=== PATIENT | female | born 1950 | race Caucasian/White ===

== ENCOUNTER 2016-12-21 21:59 | Inpatient (IN) | payer MEDICARE, BC ==
[~2016-12-21] VITALS: Ht 162.6 cm; Wt 122.9 kg
--- NOTE | ~2016-12-21 | HP ---
ADMIT: 12/21/2016 RM/LOC: 312 [facility] MR#: [id number] [address] [address] NATACHA GARCIA [address] [place] [address] History and Physical SEX: F AGE: 66 : 1950 DATE OF SERVICE: 12/22/2016 CHIEF COMPLAINT: Urosepsis. HISTORY OF PRESENT ILLNESS: Natacha is a pleasant 66-year-old white female, who presented to the [facility] Emergency Department in the evening hours of 12/21/2016 with about a one month history of progressively worsening malodorous urine, urinary urgency, and urinary frequency. She denied any dysuria. She had some low bilateral back pain with this. She thought that perhaps she had another urinary tract infection, but was trying to self medicate this with cranberry juice. In reviewing her clinic record dating back to January of 2016, she has at least 4 culture proven urinary tract infections. She is not currently on any antibiotic prophylaxis for further infections. PAST MEDICAL HISTORY: Remarkable for the following; 1. Carcinoma in situ of the endometrium. 2. History of panic attacks and generalized anxiety disorder. 3. Hypertension. 4. Hyperlipidemia. 5. Vitamin D deficiency. 6. Obesity. PAST SURGICAL HISTORY: 1. She had a papilloma excised from areola of the left breast. 2. Laparoscopic-assisted vaginal hysterectomy with bilateral salpingo oophorectomy in January of 2013. MEDICATIONS: Her outpatient medications include; 1. Zoloft 50 mg daily. 2. Vitamin D 50,000 units weekly. 3. Hyzaar 100/25, one tab daily. 4. Atenolol 25 mg daily. 5. Aspirin 81 mg daily. 6. Nystatin/triamcinolone twice daily as needed for skin yeast infections. 7. Nexium 20 mg daily. 8. Artificial Tears. ALLERGIES: 1. SHE IS ALLERGIC TO WILLIAM INHIBITORS WHICH CAUSE COUGH. 2. FLUOROQUINOLONES CAUSE JOINT PAINS. 3. SULFA MEDICATIONS. SOCIAL HISTORY: She is . Her , Juma accompanies her in the ICU room today. She is a nonsmoker. She denies any significant alcohol use. She does not use any drugs. She is currently not working. She lives at home with her spouse. FAMILY HISTORY: Noncontributory. ADMIT: 12/21/2016 RM/LOC: 312 [facility] MR#: [id number] [address] [address] NATACHA GARCIA [address] [place] [address] History and Physical SEX: F AGE: 66 : 1950 REVIEW OF SYSTEMS: She denies any diarrhea. She has had some vomiting in the last couple of days. She has also had some low-grade fevers and dizziness. She denies any rash. Again, she has had a malodorous urine, urinary frequency, and urinary urgency, but no dysuria. She has had some low back pain without any numbness or weakness down her lower extremities. Again, it should be noted that she has had 4 culture proven urinary tract infections in our clinic. All managed by her serology technician in the last year. She is not on any prophylactic antibiotics. PHYSICAL EXAMINATION: VITAL SIGNS: Her blood pressure is 116/95, this is on a Levophed drip; pulse is 68; respirations are 18; T-max in the overnight period since admission is 101.4; O2 saturation presently is 91% on room air. GENERAL: She is awake, alert, pleasant, and appropriate. Lying in supine position in hospital bed. She is obese. HEENT: Normocephalic and atraumatic. NECK: Supple. No lymphadenopathy. No thyromegaly. No JVD. HEART: Regular rate and rhythm. No murmurs, gallops, or rubs. LUNGS: Clear to auscultation bilaterally. ABDOMEN: Soft, nontender, and nondistended. No rebound, guarding, or masses. EXTREMITIES: No cyanosis, clubbing, or edema. LABORATORY AND X-RAY DATA: Procalcitonin on admission through the ER was 0.42, this is jumped up to 42 in the overnight period. Her lactic acid initially was 3.2, with IV hydration, this is 1.3 now. UA with micro on admission 1+ protein, 2+ blood, 3+ leukocyte esterase, 36 whites per high- power field, few bacteria, this was a straight cath specimen. Initial ABG showed a pH of 7.42, pCO2 of 32, PO2 of 54, and bicarb of 23. CMP was remarkable for a mildly depressed potassium of 3.4, and magnesium 1.7. CRP was 3.17. Cardiac enzymes were negative. ProBNP was 146. CBC initially showed a white count of 7.9 with 24% bands, hemoglobin and platelets were unremarkable. Repeat CBC this morning shows a white count of 17,000, again with a 9% bandemia; hemoglobin of 12.5; and platelet of 219. Repeat BMP this morning, potassium is improved to 3.8. Blood culture finals are pending; otherwise, no growth to date on those. CT of the abdomen and pelvis shows a congenitally malrotated right kidney and a 1 cm right renal hypodensity at the inferior pole which may represent a small cyst or even possible focal area of pyelonephritis. Urine culture is read out as "growth present, further incubation required for further evaluation." ASSESSMENT: 1. Sepsis due to urinary tract infection. 2. Urinary tract infection. 3. Recurrent urinary tract infections. 4. Hypertension. 5. Hyperlipidemia. ADMIT: 12/21/2016 RM/LOC: 312 [facility] MR#: [id number] [address] [place] [id number] JOSE NATACHA S [address] [place] [address] History and Physical SEX: F AGE: 66 : 1950 6. Vitamin D deficiency. 7. Obesity. 8. History of endometrioid adenocarcinoma of the uterus. 9. History of retinal detachment. 10.Generalized anxiety disorder and panic attacks. PLAN: Natacha has been placed on vancomycin and Zosyn in the overnight period. I agree with these antibiotics. Critical Care Medicine has been consulted. She is currently on Levophed drip. I anticipate that we will be able to wean that down here in the next 24 to 48 hours. We will continue her IV hydration tailor her antibiotics based on her urine cultures once those are available. Long-term, she is going to need to have urinary tract infection suppression. Dawson Silverio MD/ nidia JOB #: [id number] CC: Dawson Silverio, Attending Physician Dawson Silverio, Family Physician
--- NOTE | 2016-12-22 03:02 | ER ---
ADMIT: 12/21/2016 RM/LOC: ER [facility] MR#: [id number] [address] [address] NATACHA GARCIA [address] [place] [address] Emergency Room Report SEX: F AGE: 66 : 1950 DATE: 12/21/2016 HISTORY OF PRESENT ILLNESS: The patient is a 66-year-old female, complaining of urinary frequency with minimal dysuria for the past several weeks, developed fever and right flank pain tonight with nausea and vomiting x3. No prior history of pyelonephritis. Does have history of renal colic, status post lithotripsy in the remote past. PAST MEDICAL HISTORY: ILLNESSES: Hypertension, GERD, depression, anxiety, uterine cancer, kidney stones. OPERATIONS: Breast biopsies, extracorporeal shock wave lithotripsy, hysterectomy with bilateral salpingo-oophorectomy. ALLERGIES: NONE. MEDICATIONS: Please see nurse's MAR. SOCIAL HISTORY: , nonsmoker, nondrinker. No illicit drugs. FAMILY HISTORY: Negative per chart review. REVIEW OF SYSTEMS: A 12-point review of systems negative for all other systems, illnesses, or operations except as outlined above. PHYSICAL EXAMINATION: VITAL SIGNS: Temp 102.1, pulse 102, respirations 22, BP 177/57, SaO2 of 92% on room air, weight 118.2 kilos. GENERAL: Anxious, non-diaphoretic, toxic appearing without jaundice or icterus. HEENT: Normocephalic. No evidence of epistaxis, rhinorrhea or otorrhea. NECK: Supple without lymphadenopathy or thyromegaly. CHEST: Clear. Breath sounds equal. HEART: Tachycardic, regular without murmur, gallop, or edema. ABDOMEN: Obese, nontender, nondistended without mass or megaly. Bowel sounds hypoactive. BACK: No CVA tenderness. EXTREMITIES: No evidence of Homans sign, synovitis, or dermatitis. NEURO: EOMI. PERRLA. MEDICAL DECISION MAKING: The patient's screen is positive for sepsis. Normal CBC. CRP elevated at 3.17. Magnesium 1.7, potassium 3.4, procalcitonin 0.42. ABGs on room air pH 7.4, pCO2 of 39, PO2 of 62, lipase 155, lactic 3.2. UA; 3+ leukocyte esterase, 56 WBCs, 52 RBCs, culture pending. EKG shows sinus rhythm with left atrial enlargement, anterior lateral ST depression. Chest x- ray negative. CT abdomen and pelvis consistent with right pyelonephritis. No urinary obstruction. The patient treated with IV fluid bolus 30 mL/kg and Zofran 8 mg IV push, Tylenol 1 g IV piggyback with marked improvement of fever ADMIT: 12/21/2016 RM/LOC: [facility] MR#: [id number] [address] [place] [id number] [place] [address] Emergency Room Report SEX: F AGE: 66 : 1950 and pain. Vancomycin and Zosyn weight based. Discussed findings with Dr. Grant, who agreed and gave orders to nursing staff. DIAGNOSIS: Severe sepsis associated with right pyelonephritis. RECOMMENDATION: Admit inpatient PCU for Dr. Silverio. ADMISSION/DISCHARGE CONDITION: Stable. Patient is a full code. Jared Carlin MD/ nidia JOB #: [id number] CC: Jared Carlin MD, Attending Physician Dawson Silverio MD, Family Physician Dawson Silverio MD
[2016-12-26] MEDS ORDERED: TENORMIN-DPS25 MG PO (09:37)
[2016-12-26] MEDS ORDERED: ZOLOFT DPS50 MG PO (09:37)
[2016-12-26] MEDS ORDERED: NEXIUM20 MG PO (09:37)
[2016-12-26] MEDS ORDERED: LOSARTAN-HCTZ1 EAC1 PO (09:37)
[2016-12-26] MEDS ORDERED: NORVASC DPS10 MG PO (09:38)
[2016-12-26] MEDS ORDERED: VITAMIN D50000 UNIT PO (09:38)
[2016-12-26] MEDS ORDERED: OMNICEF DPS300 MG PO (09:38)
[2016-12-26] MEDS ORDERED: ASPIR 8181 MG PO (09:38)
[2016-12-26] MEDS ORDERED: HIPREX DPS1 GM PO (09:39)
--- NOTE | 2017-01-02 08:00 | CO ---
ADMIT: 12/21/2016 RM/LOC: 312 [facility] MR#: [id number] [address] [address] NATACHA GARCIA [address] [place] [address] Consultation SEX: F AGE: 66 : 1950 DATE OF CONSULTATION: 12/24/2016 ATTENDING PHYSICIAN: Dawson Silverio CONSULTING PHYSICIAN: Flo Lewis MD REASON FOR CONSULTATION: Urinary tract infection and probable pyelonephritis and sepsis. HISTORY OF PRESENT ILLNESS: The patient is a pleasant 66-year-old, white female. She presented to [place] Emergency Department on 12/21/2016. She did notice foul smell to her urine, urinary urgency, frequency as well as bilateral low back pain, fever, and nausea and vomiting. The patient did undergo a cath specimen for urine culture, which grew out klebsiella. Blood cultures grew out klebsiella as well. These were resistant to penicillins as well as Cipro and tobramycin. The patient is currently maintained on Zosyn and tolerating well and recovering nicely. On admission, her white blood cell count was 17.8, which has come down to 10.6 and serum creatinine is 0.9 and stable. She did have a CT scan, which demonstrated a small right renal cyst, which was noted on evaluation back in 2013. There was no evidence of significant lobar nephronia. There is no perinephric inflammation. There was slight malrotation of the right kidney, but no evidence of hydronephrosis or stone. The bladder was unremarkable without bladder wall thickening. There was no air within the bladder. The patient states that at baseline she does have some mild irritative voiding symptoms, although she only experiences nocturia x1. Has rare small volume stress-related incontinence usually requiring 1 to 2 pads a day, but they are typically not very well when she changes the pad. Does not seem to be a lot of urinary urgency or frequency during the day and denies any significant urge related incontinence unless she delays her void too long. The patient denies any history of hematuria. The patient has had previous urologic evaluation back in [address] Kelly. This was done for issues related to recurrent urinary tract infections. At that time, she had a cystoscopy, which was unrevealing per her report. Cystoscopy did follow a transvaginal hysterectomy, which was performed approximately 4 years ago. There were no foreign bodies or sutures noted within the bladder. The patient denies any other issues such as history of recurrent diverticulitis. There has been no previous colon surgery otherwise. The patient denies any pneumaturia. PAST MEDICAL HISTORY: Significant for: 1. Carcinoma in situ of the endometrium status post transvaginal hysterectomy. 2. Hypertension. 3. Hyperlipidemia. 4. Obesity. 5. Recurrent urinary tract infection. ADMIT: 12/21/2016 RM/LOC: 312 [facility] MR#: [id number] [address] [place] [id number] NATACHA GARCIA [address] [place] [address] Consultation SEX: F AGE: 66 : 1950 MEDICATIONS: At present include: 1. Aspirin. 2. Hyzaar. 3. Norvasc. 4. Protonix. 5. Zoloft. 6. Zosyn. ALLERGIES: SULFA AND CIPRO. PAST SURGICAL HISTORY: Previous transvaginal hysterectomy. No other surgical therapy involving the kidneys or bladder. FAMILY HISTORY: Noncontributory. SOCIAL HISTORY: The patient does not use tobacco. REVIEW OF SYSTEMS: Please see voiding pattern outlined as dictated above. PHYSICAL EXAMINATION: GENERAL: The patient is in no apparent distress. She is afebrile. There have been no fever spikes. Blood pressure is stable. Urine output is good. The patient denies any discomfort with voiding at present. ABDOMEN: Otherwise soft without suprapubic mass or tenderness. No guarding or rebound. BACK: No costovertebral angle tenderness. GENITOURINARY: Vaginal exam demonstrates some mild changes of atrophic vaginitis. There are no excoriations of the vaginal mucosa. The urethral meatus is unremarkable without prolapse or caruncle. There is no palpable mass or tenderness to palpation along the urethra. LABORATORY DATA: Sodium 146, potassium 3.4, BUN and creatinine of 18 and 0.9. White blood cell count 10.6, hematocrit 35.3, and platelet count 214. Urinalysis is as outlined above. Urine culture and blood culture as outlined above. Radiology CT scan as outlined above. ASSESSMENT: Recurrent klebsiella urinary tract infection. This could be just ADMIT: 12/21/2016 RM/LOC: 312 [facility] MR#: [id number] [address] [address] NATACHA GARCIA [address] [place] [address] Consultation SEX: F AGE: 66 : 1950 reflective of inadequately treated urinary tract infection. We also questioned how well the patient is emptying her bladder. RECOMMENDATIONS: 1. Ultrasound residual x2. Please record in chart. 2. Do agree with current antibiotic therapy. On an outpatient basis, the patient could to be continued on Omnicef 300 mg p.o. b.i.d. for the next 2 weeks. I would then transition her to low dose antibiotic suppression with trimethoprim 100 mg 1 p.o. daily. I will see the patient back in approximately 2 to 3 weeks after discharge for repeat urinalysis, residual check, and assessment of voiding pattern. At this time, I do not recommend any further radiographic imaging or cystoscopy. Flo Lewis MD/ nidia JOB #: [id number] CC: Dawson Silverio, Attending Physician Dawson Silverio, Family Physician
--- NOTE | 2017-01-05 08:30 | DS ---
ADMIT: 12/21/2016 RM/LOC: 312 [facility] MR#: [id number] [address] [address] NATACHA GARCIA [address] [place] [address] Discharge Summary SEX: F AGE: 66 : 1950 ADMISSION DATE: 12/21/2016 DISCHARGE DATE: 12/25/2016 ADMITTING DIAGNOSES: 1. Acute urinary tract infection. 2. Sepsis due to acute urinary tract infection. 3. Recurrent urinary tract infections. 4. Hyperlipidemia. 5. Hypertension. 6. Vitamin D deficiency. 7. Obesity. 8. History endometrial adenocarcinoma of the uterus. 9. History of retinal detachment. 10.Generalized anxiety disorder and panic attacks. DISCHARGE DIAGNOSES: 1. Acute urinary tract infection. 2. Sepsis due to acute urinary tract infection. 3. Recurrent urinary tract infections. 4. Hyperlipidemia. 5. Hypertension. 6. Vitamin D deficiency. 7. Obesity. 8. History endometrial adenocarcinoma of the uterus. 9. History of retinal detachment. 10.Generalized anxiety disorder and panic attacks. CONSULTATIONS: Flo Lewis M.D. Urology, consulted on 12/24/2016. PROCEDURES: None. HISTORY AND PHYSICAL EXAM: Natacha is a very pleasant, 66-year-old, white female who presented to [facility] Emergency Department in the evening hours of 12/21/2016 with a one month history of progressively worsening malodorous urine, urinary frequency, and urinary urgency. She denied any dysuria. She was having some low back pain with this. On her initial exam, she was found to be hypotensive and febrile. Her urine was strongly suggestive for infection. Review of her outpatient records reveals that she has had four culture proven gram-negative urinary cultures over the preceding 11 months. She was subsequently admitted to the ICU for IV antibiotics and fluid resuscitation. HOSPITAL COURSE: She was started on IV fluids as well as a Levophed drip for correction of her blood pressures. She was started on Zosyn and vancomycin empirically for antibiotic coverage. Blood cultures and urine cultures were obtained and are pending. On the following day, her blood pressures had improved. She was weaned off the Levophed drip. She had problems with low potassium and low magnesium. These were replaced. Blood cultures and urine culture ultimately grew out Klebsiella pneumoniae, which was sensitive to the ADMIT: 12/21/2016 RM/LOC: 312 [facility] MR#: [id number] [address] [address] NATACHA GARCIA [address] [place] [address] Discharge Summary SEX: F AGE: 66 : [address] scan of her abdomen and pelvis on admission did show a mild congenital deformity of her right kidney as well as what appears ultimately to be a cyst near the right kidney. Dr. Lewis with Urology was consulted and recommended chronic long-term suppressive antibiotic therapy and an outpatient followup. By the morning of 12/25/2016, Natacha was doing much better. Blood pressures had remained stable. She remained afebrile for well over 48 hours and a decision was made to discharge her to home with antibiotic therapy tailored to her blood cultures. It should be noted that she had problems with nocturnal hypoxemia. A trend oximetry performed by Respiratory Therapy showed her to need 1 L of oxygen at bedtime. DISCHARGE CONDITION: Good. DISPOSITION: She will be discharged to home. DISCHARGE MEDICATIONS: Discharge medications will include: 1. Hiprex 1 g p.o. b.i.d. 2. Omnicef 300 mg p.o. b.i.d. for 14 days. 3. Norvasc 10 mg daily. 4. Aspirin 81 mg daily. 5. Hyzaar 100/25 one tab daily. 6. Vitamin D 50,000 units q.week. 7. Zoloft 50 mg daily. 8. Nexium 20 mg daily. 9. Atenolol 25 mg daily. FOLLOW UP: She is to follow up with me in my clinic on Thursday and with Dr. Lewis in his Urology clinic in two to three weeks. I am also going to set her up with an outpatient sleep study for nocturnal hypoxemia. Dawson Silverio MD/ njv JOB #: [id number] CC: Dawson Silverio MD, Attending Physician Dawson Silverio MD, Family Physician
== END 2016-12-25 10:30 | disposition home or self-care (01) | DRG 872 ==
LOC: ER 21:59 → 3ICU 23:05
PROVIDERS: ADMIT Family Medicine
DX: A41.89 Other specified sepsis (principal); Z68.42 Body mass index [BMI] 45.0-49.9, adult; I10 Essential (primary) hypertension; N39.0 Urinary tract infection, site not specified; N28.1 Cyst of kidney, acquired; K21.9 Gastro-esophageal reflux disease without esophagitis; F32.9 Major depressive disorder, single episode, unspecified; E87.6 Hypokalemia; E83.42 Hypomagnesemia; E83.39 Other disorders of phosphorus metabolism; R09.02 Hypoxemia; F41.1 Generalized anxiety disorder; E66.9 Obesity, unspecified; Q63.9 Congenital malformation of kidney, unspecified; F41.0 Panic disorder [episodic paroxysmal anxiety]; E78.5 Hyperlipidemia, unspecified; N39.3 Stress incontinence (female) (male); E55.9 Vitamin D deficiency, unspecified; Z87.442 Personal history of urinary calculi; Z85.42 Personal history of malignant neoplasm of other parts of uterus; Z79.82 Long term (current) use of aspirin

== ENCOUNTER → 2017-01-15 | Outpatient (CLI) | payer MEDICARE, BC ==
[~2017-01-15] MED LIST: ASPIR 8181 MG PO; HIPREX DPS1 GM PO; LOSARTAN-HCTZ1 EAC1 PO; NEXIUM20 MG PO; NORVASC DPS10 MG PO; OMNICEF DPS300 MG PO; TENORMIN-DPS25 MG PO; VITAMIN D50000 UNIT PO; ZOLOFT DPS50 MG PO
--- NOTE | 2017-02-02 11:02 | SS ---
ADMIT: 01/15/2017 RM/LOC: [facility] MR#: [id number] [address] [address] NATACHA GARCIA [address] [place] [address] Sleep Study SEX: F AGE: 66 : 1950 STUDY DATE: 01/15/2017 CLINICAL HISTORY: A 66-year-old female, body mass 46.1, 63 inches tall, 260 pounds, who has symptoms of nocturnal hypoxemia, who is in the sleep lab for evaluation of obstructive sleep apnea. TECHNICAL DESCRIPTION: Diagnostic polysomnogram performed on night of 01/15/2017, attended by a trained radiology technologist. DIAGNOSTIC POLYSOMNOGRAM FINDINGS: SLEEP: Total time in bed is 419.5 minutes, total sleep time 310 minutes, sleep efficiency 73.9%. 64.7% hours spent in stage II sleep, 9.2% hours spent in stage REM. BREATHING: Moderate to severe obstructive sleep apnea with apnea-hypopnea 25.4. During the study, there were 13 obstructive apneas, 103 obstructive hypopneas noted. OXYGEN SATURATION: Mean sleeping on 90%, lowest oxygen saturation 83% in REM sleep, 56.6% hours spent in saturating 80% to 89%. CARDIAC: Average heart rate 54 beats per minute. MOVEMENTS/POSITION: During the study, the patient slept in the supine lateral position with no significant leg movements. IMPRESSION: [id number] obstructive sleep apnea with apnea-hypopnea index of 25.4. Recommend in-lab CPAP titration. Recommend losing weight, avoiding sedatives and alcohol. Refrain from driving if excessively sleepy. Recommend avoiding sleeping in supine position. Clinical correlation needed. CPAP titration and compliance followup is recommended. Miles Ag MD/ nidia JOB #: [id number] CC: Dawson Silverio MD, Attending Physician Dawson Silverio MD, Family Physician Dawson Silverio MD
== END | disposition home or self-care (01) ==
LOC: RESC 20:20
DX: G47.33 Obstructive sleep apnea (adult) (pediatric) (principal); R09.02 Hypoxemia